=== PATIENT | male | born 1970 | race Caucasian/White ===

== ENCOUNTER 2018-12-18 19:28 | Emergency (ER) | payer OTHER ==
--- NOTE | 2018-12-18 19:49 | EDM.PDOC ---
ED HPI GENERAL MEDICAL PROBLEM - General Chief Complaint: Upper Extremity Injury/Pain Stated Complaint: FELL OFF LADDER Time Seen by Provider: 12/18/18 19:28 Source of Information: Reports: Patient, Family History Limitations: Reports: No Limitations - History of Present Illness INITIAL COMMENTS - FREE TEXT/NARRATIVE: 48 y.o.w.m came to the ed after he fell 8 feet from a ladder. When is found him, he was on the ground on his back. He did not hit his head, but c/o neck pain, especially with movement. No LOC, no H/A no back pain, no pain in lower extremities of heals. As the pt arrived in the ed, his only complaint was bilateral neck pain with movement of his neck, no other acute med issues. BP 136 /84 RR 18 Pulse ox 98% on RA Temp 36.8 Pulse 87. Onset Date: 12/18/18 Onset Time: 18:00 Duration: Minutes:, Hour(s): Location: Reports: Neck Quality: Reports: Ache, Dull, Pressure Severity: Moderate Improves with: Reports: Rest Worsens with: Reports: Movement Context: Reports: Trauma (Fall) Associated Symptoms: Reports: No Other Symptoms Treatments [employer]: Reports: Other (see below) (none) - Related Data Allergies Allergy/AdvReac Type Severity Reaction Status Date / Time No Known Allergies Allergy Verified 12/18/18 19:43 Home Meds: Home Meds NK [No Known Home Meds] 06/07/14 [History] Review of Systems - Review of Systems Review Of Systems: See Below Eyes: Reports: No Symptoms Ears: Reports: No Symptoms Nose: Reports: No Symptoms Mouth/Throat: Reports: No Symptoms Respiratory: Reports: No Symptoms Cardiovascular: Reports: No Symptoms GI/Abdominal: Reports: No Symptoms Genitourinary: Reports: No Symptoms Musculoskeletal: Reports: Neck Pain Skin: Reports: No Symptoms Neurological: Reports: No Symptoms Psychiatric: Reports: No Symptoms ED EXAM, GENERAL - Physical Exam Exam: See Below Exam Limited By: No Limitations General Appearance: Alert, WD/WN, Moderate Distress Eye Exam: Bilateral Eye: Normal Inspection Ears: Normal External Exam, Normal Canal Ear Exam: Bilateral Ear: Auricle Normal Nose: Normal Inspection, Normal Mucosa, No Blood Throat/Mouth: Normal Inspection, Normal Lips, Normal Voice, No Airway Compromise Head: Atraumatic, Normocephalic Neck: Normal Inspection, Supple, Full Range of Motion, Tender Lateral ( bilateral ) Respiratory/Chest: No Respiratory Distress, Lungs Clear, Normal Breath Sounds, Chest Non-Tender Cardiovascular: Normal Peripheral Pulses, Regular Rate, Rhythm, No Edema, No Gallop Peripheral Pulses: 2+: Brachial (L) GI/Abdominal: Normal Bowel Sounds, Soft, Non-Tender, No Organomegaly, No Distention, No Abnormal Bruit, No Mass, Pelvis Stable (Male) Exam: Deferred Rectal (Males) Exam: Deferred Back Exam: Normal Inspection, Full Range of Motion Extremities: Normal Inspection, Normal Range of Motion, Non-Tender, No Pedal Edema Neurological: Alert, Oriented, CN II-XII Intact, Normal Cognition, Normal Gait Psychiatric: Normal Affect, Normal Mood Skin Exam: Warm, Dry, Intact, Normal Color, No Rash Lymphatic: No Adenopathy Course - Vital Signs Text/Narrative:: 48 y.o.w.m came to the ed after he fell 8 feet from a ladder. When is found him, he was on the ground on his back. He did not hit his head, but c/o neck pain, especially with movement. No LOC, no H/A no back pain, no pain in lower extremities of heals. As the pt arrived in the ed, his only complaint was bilateral neck pain with movement of his neck, no other acute med issues. BP 136 /84 RR 18 Pulse ox 98% on RA Temp 36.8 Pulse 87. PE: WNWD W M with bilateral neck discomfort Imaging: XRAY of neck: NAD, DDD at C6-7. reversal of lordosis of neck, minor Impression: Fall from an 8 fee ladder. DDD at C6/7 Tx: ICE, pt refused any kind of pain meds. Reexam: Pt was doing fine, refused pain meds Plan: D/C with instructions Last Recorded V/S: Last Vital Signs Temp 36.9 C 12/18/18 19:40 Pulse 74 12/18/18 19:40 Resp 18 12/18/18 19:40 BP 136/84 12/18/18 19:40 Pulse Ox 98 12/18/18 19:40 - Orders/Labs/Meds Orders: Active Orders 24 hr Category Date Time Status Cervical Spine 2V or 3V [CR] Stat Exams 12/18/18 19:46 Taken Departure - Departure Time of Disposition: 21:04 Disposition: Home, Self-Care 01 Condition: Good Clinical Impression: Fall on/from ladder Qualifiers: Encounter type: initial encounter Qualified Code(s): W11.XXXA - Fall on and from ladder, initial encounter - Discharge Information Referrals: Man Camilo MD [Primary Care Provider] - Forms: ED Department Discharge Additional Instructions: Please apply ice to neck, please take Motrin for pain, pain may be worse tomorrow. Please f/u, come back if your symptoms get worse acutely - My Orders Last 24 Hours: My Active Orders 12/18/18 19:46 Cervical Spine 2V or 3V [CR] Stat - Assessment/Plan Last 24 Hours: My Active Orders 12/18/18 19:46 Cervical Spine 2V or 3V [CR] Stat
[2018-12-18 20:02] VITALS: BP 136/84
== END 2018-12-18 21:10 | disposition home or self-care (01) ==
LOC: FB.ED 19:28
DX: M50.323 Other cervical disc degeneration at C6-C7 level (principal); W11.XXXA Fall on and from ladder, initial encounter
CPT/HCPCS: 72040; 99283-25